=== PATIENT | female | born 1975 | race Caucasian/White ===

== ENCOUNTER 2024-06-12 16:30 | Inpatient (IN) | payer SELFPAY ==
[~2024-06-12] VITALS: Ht 144.8 cm; Wt 57.2 kg
[2024-06-12 18:11] LABS: CLARITY URINE CLOUDY (CLEAR); COLOR URINE DARK YELLOW (YELLOW); GLUCOSE URINE NEGATIVE (NEGATIVE); KETONES URINE 3+ (NEGATIVE); LEUKOCYTE ESTERASE URINE NEGATIVE (NEGATIVE); NITRITE URINE NEGATIVE (NEGATIVE); OCCULT BLOOD URINE TRACE (NEGATIVE); PH URINE 5.5 (4.5-8.0); PROTEIN URINE 1+ (NEGATIVE); SPECIFIC GRAVITY URINE 1.035 (1.005-1.030)
[2024-06-12 18:55] LABS: BACTERIA URINE TRACE; RBC URINE 0-2 /hpf (0-2); SQUAMOUS EPITHELIAL CELL URINE FEW /lpf (RARE/1+); WBC URINE 0-2 /hpf (0-2)
[2024-06-12 20:16] LABS: HCG SCREEN NEGATIVE
[2024-06-12 20:24] LABS: CHLORIDE 102 mEq/L (98-107); POTASSIUM 3.7 mEq/L (3.5-5.1); SODIUM 136 mEq/L (136-145)
[2024-06-12 20:25] LABS: CALCIUM 9.5 mg/dL (8.7-10.4); CARBON DIOXIDE 23 mEq/L (21-32)
[2024-06-12 20:30] LABS: CREATININE 0.6 mg/dL (0.6-1.0); GLUCOSE 96 mg/dL (70-105); UREA NITROGEN BLOOD 13 mg/dL (9-23)
[2024-06-12 20:32] LABS: ALANINE AMINOTRANSFERASE 319 IU/L (10-49); ALBUMIN 4.4 g/dL (3.2-4.8); ASPARTATE AMINOTRANSFERASE 301 IU/L (<34); BILIRUBIN DIRECT 2.1 mg/dL (<=3.0); BILIRUBIN TOTAL 3.3 mg/dL (0.1-1.0); HEMATOCRIT. 22.9 % (36.0-48.0); MEAN CORPUSCULAR HEMOGLOBIN 17.7 pg (28.0-32.0); MEAN CORPUSCULAR HGB CONC 29.1 g/dL (31.0-37.0); MEAN CORPUSCULAR VOLUME 60.8 fL (81.0-99.0); MEAN PLATELET VOLUME 8.8 fl (7.4-10.4); PLATELET 510 x1000/uL (130-400); PROTEIN TOTAL 7.8 g/dL (6.0-8.3); RED BLOOD CELL COUNT 3.77 mill/uL (4.2-5.4); RED CELL DISTRIBUTION WIDTH 20.1 % (11.6-14.6); WHITE BLOOD COUNT 8.4 x1000/uL (4.5-11.0)
[2024-06-12 20:38] LABS: DIFFERENTIAL COMMENT 1; HEMOGLOBIN. 6.7 g/dL (12.0-16.0)
[2024-06-12 21:09] LABS: HYPOCHROMASIA 3+; MICROCYTOSIS 3+; PLATELET ESTIMATE INCREASED
[2024-06-13] MEDS ORDERED: MAGNESIUM/ALUMINUM HYDROXIDE/SIMETHICONE 30ML UDC PO PRN
[2024-06-13] MEDS ORDERED: ONDANSETRON HCL 4MG/2ML INJ IV PRN
[2024-06-13] MEDS ORDERED: GUAIFENESIN 200MG/10ML SUGAR FREE UDC PO PRN
[2024-06-13] MEDS ORDERED: DEXTROSE 50% WATER 50ML SYRINGE IV PRN
[2024-06-13] MEDS ORDERED: HYDRALAZINE 20MG/ML VIAL IV PRN
[2024-06-13] MEDS ORDERED: IPRATROPIUM/ALBUTEROL 0.5-3(2.5)MG/3ML NEB HHN PRN
[2024-06-13] MEDS ORDERED: ACETAMINOPHEN 325MG TABLET PO PRN ×2
[2024-06-13] MEDS: DEXT 5%/0.45% NACL 1000ML 1,000 ML IV SCH (00:13)
[2024-06-13 02:39] LABS: INR 0.9; PROTHROMBIN TIME 10.1 sec (9.6-11.0)
[2024-06-13 02:51] LABS: IRON 18 ug/dL (50-170)
[2024-06-13 02:54] LABS: LACTATE DEHYDROGENASE 301 IU/L (120-246); PHOSPHORUS 3.3 mg/dL (2.5-4.9)
[2024-06-13 02:55] LABS: TOTAL IRON BINDING CAPACITY 425 ug/dl (250-425)
[2024-06-13] MEDS: PIPERACILLIN/TAZO 3.375G/50ML 50 ML IV SCH (04:40)
[2024-06-13] MEDS ORDERED: ENOXAPARIN 40MG/0.4ML SYR SUBCUT SCH (09:00)
[2024-06-13] MEDS: BLOOD SUGAR DIAGNOSTIC STRIP TEST SCH (09:00)
[2024-06-13 09:40] LABS: VITAMIN B12 SERUM 1167 pg/mL (211-911)
[2024-06-13 09:41] LABS: FERRITIN 6 ng/mL (10-291)
[2024-06-13 09:50] LABS: HEPATITIS B SURFACE ANTIGEN NEGATIVE (Negative)
[2024-06-13 10:11] LABS: HEPATITIS A AB IGM NEGATIVE (Negative); HEPATITIS B CORE AB IGM NEGATIVE (Negative)
[2024-06-13 10:12] LABS: HEPATITIS C AB NON REACTIVE (Neg) (Negative)
[2024-06-13 12:00] VITALS: BP 109/62; PULSE 69; RESP 17; TEMP 37.4; O2SAT 100
[2024-06-13] MEDS: INSULIN LISPRO 100 UNITS/ML SUBCUT SCH (12:16)
[2024-06-13 12:36] VITALS: BP 109/62; PULSE 69; RESP 17; TEMP 37.4
[2024-06-13] MEDS ORDERED: NON FORMULARY MED XX SCH (13:00)
[2024-06-13] MEDS: IRON SUCROSE COMPLEX 100 MG/5 ML ML IV SCH (14:30)
[2024-06-13 14:41] LABS: *AMPHETAMINES SCREEN URINE NEGATIVE (NEGATIVE); *BARBITURATES SCREEN URINE NEGATIVE (NEGATIVE); *BENZODIAZEPINES SCREEN URINE NEGATIVE (NEGATIVE); *COCAINE SCREEN URINE NEGATIVE (NEGATIVE); METHADONE URINE SCREEN NEGATIVE (NEGATIVE); OPIATES URINE SCREEN NEGATIVE (NEGATIVE); PHENCYCLIDINE URINE SCREEN NEGATIVE (NEGATIVE)
[2024-06-13 14:42] LABS: CANNABINOID URINE SCREEN NEGATIVE (NEGATIVE); ECSTASY MDMA SCREEN URINE NEGATIVE (NEGATIVE)
[2024-06-13 16:00] VITALS: BP 111/59; PULSE 77; RESP 18; TEMP 36.9; O2SAT 100
[2024-06-13 16:38] LABS: CHLORIDE 105 mEq/L (98-107); POTASSIUM 3.2 mEq/L (3.5-5.1); SODIUM 137 mEq/L (136-145)
[2024-06-13 16:39] LABS: CALCIUM 9.1 mg/dL (8.7-10.4); CARBON DIOXIDE 25 mEq/L (21-32)
[2024-06-13 16:44] LABS: CREATINE KINASE 82 IU/L (34-145); CREATINE KINASE MB FRACTION 0.8 ng/mL (0.5-3.6); CREATININE 0.7 mg/dL (0.6-1.0); GLUCOSE 88 mg/dL (70-105); TRIGLYCERIDE 150 mg/dL (0-150); TROPONIN I HIGH SENSITIVITY 8 ng/L (3.0-34)
[2024-06-13 16:45] LABS: LDL CHOLESTEROL 107 mg/dL (5-100); UREA NITROGEN BLOOD 9 mg/dL (9-23)
[2024-06-13 16:46] LABS: CHOLESTEROL 186 mg/dL (<200); HDL CHOLESTEROL 39 mg/dL (>65)
[2024-06-13 16:47] LABS: T4 FREE 1.49 ng/dL (0.89-1.76); THYROID STIMULATING HORMONE 1.91 uIU/mL (0.55-4.78)
[2024-06-13 16:48] LABS: BASOPHILS % 1.3 % (0.0-2.0); EOSINOPHILS % 4.2 % (0.0-5.0); HEMOGLOBIN. 8.1 g/dL (12.0-16.0); LYMPHOCYTES % 42.3 % (20.0-50.0); MEAN CORPUSCULAR HGB CONC 29.1 g/dL (31.0-37.0); MEAN CORPUSCULAR VOLUME 65.5 fL (81.0-99.0); MEAN PLATELET VOLUME 8.9 fl (7.4-10.4); MONOCYTES % 9.9 % (2.0-8.0); NEUTROPHILS % 42.3 % (40.0-76.0); PLATELET 445 x1000/uL (130-400); RED BLOOD CELL COUNT 4.28 mill/uL (4.2-5.4); RED CELL DISTRIBUTION WIDTH 23.1 % (11.6-14.6); WHITE BLOOD COUNT 5.4 x1000/uL (4.5-11.0)
[2024-06-13 17:11] LABS: ADD RBC MORPHOLOGY YES; DIFFERENTIAL COMMENT 1
[2024-06-13 20:00] VITALS: BP 112/71; PULSE 79; RESP 16; TEMP 36.5; O2SAT 99
[2024-06-13] MEDS: POTASSIUM CHLORIDE 20MEQ/PACKET PO NR (20:26)
[2024-06-13] MEDS: HYDROCODONE/ACETAMINOPHEN 5/325MG TABLET PO PRN (20:27)
[2024-06-13] MEDS: DOCUSATE SODIUM 100MG CAPSULE PO PRN (22:44)
[2024-06-14] VITALS: BP 98/52; PULSE 72; RESP 15; TEMP 36.8; O2SAT 98
[2024-06-14 00:01] LABS: ANISOCYTOSIS 2+; HYPOCHROMASIA 2+; MICROCYTOSIS 3+; PLATELET ESTIMATE INCREASED
[2024-06-14 00:18] LABS: CREATINE KINASE 60 IU/L (34-145)
[2024-06-14 00:21] LABS: CREATINE KINASE MB FRACTION < 0.5 ng/mL (0.5-3.6); TROPONIN I HIGH SENSITIVITY 8 ng/L (3.0-34)
[2024-06-14 04:00] VITALS: BP 103/58; PULSE 60; RESP 16; TEMP 36.4; O2SAT 100
[2024-06-14 06:49] LABS: CHLORIDE 105 mEq/L (98-107); POTASSIUM 3.7 mEq/L (3.5-5.1); SODIUM 139 mEq/L (136-145)
[2024-06-14 06:54] LABS: CALCIUM 8.9 mg/dL (8.7-10.4); CARBON DIOXIDE 25 mEq/L (21-32)
[2024-06-14 06:59] LABS: CREATININE 0.7 mg/dL (0.6-1.0); GLUCOSE 112 mg/dL (70-105); UREA NITROGEN BLOOD 7 mg/dL (9-23)
[2024-06-14 07:00] LABS: ALBUMIN 3.6 g/dL (3.2-4.8)
[2024-06-14 07:01] LABS: ALANINE AMINOTRANSFERASE 401 IU/L (10-49); ASPARTATE AMINOTRANSFERASE 261 IU/L (<34); BILIRUBIN DIRECT 0.9 mg/dL (<=3.0); BILIRUBIN TOTAL 1.8 mg/dL (0.1-1.0); PROTEIN TOTAL 6.4 g/dL (6.0-8.3)
[2024-06-14 07:18] LABS: BASOPHILS % 0.9 % (0.0-2.0); EOSINOPHILS % 4.2 % (0.0-5.0); HEMATOCRIT. 24.3 % (36.0-48.0); HEMOGLOBIN. 7.5 g/dL (12.0-16.0); LYMPHOCYTES % 24.2 % (20.0-50.0); MEAN CORPUSCULAR HEMOGLOBIN 19.8 pg (28.0-32.0); MEAN CORPUSCULAR HGB CONC 30.8 g/dL (31.0-37.0); MEAN CORPUSCULAR VOLUME 64.1 fL (81.0-99.0); MEAN PLATELET VOLUME 8.5 fl (7.4-10.4); MONOCYTES % 5.3 % (2.0-8.0); NEUTROPHILS % 65.4 % (40.0-76.0); PLATELET 385 x1000/uL (130-400); RED BLOOD CELL COUNT 3.79 mill/uL (4.2-5.4); RED CELL DISTRIBUTION WIDTH 22.9 % (11.6-14.6); WHITE BLOOD COUNT 8.3 x1000/uL (4.5-11.0)
[2024-06-14 07:59] LABS: DIFFERENTIAL COMMENT 1
[2024-06-14 08:00] VITALS: BP 100/58; PULSE 65; RESP 18; TEMP 36.5; O2SAT 98
[2024-06-14] MEDS: PANTOPRAZOLE SODIUM 40 MG/VIAL IV SCH (09:18)
[2024-06-14 12:00] VITALS: BP 97/56; PULSE 60; RESP 18; TEMP 36.5; O2SAT 98
[2024-06-14] MEDS ORDERED: ACET-2708 MT ×2 (14:03→15:57)
[2024-06-14] MEDS ORDERED: AMOX1TAB16 MT ×2 (14:03→15:57)
[2024-06-14] MEDS ORDERED: FERR325T6 MT ×2 (14:47→15:57)
[2024-06-14 15:44] VITALS: BP 102/55; PULSE 66; TEMP 97.7; O2SAT 98
[2024-06-16 08:09] LABS: CANCER ANTIGEN 125 7.5 U/mL (0.0-38.1)
== END 2024-06-14 16:15 | disposition home or self-care (01) | DRG 663 ==
LOC: ER 16:30 → EDBEDREQTM 22:43 → EDBEDREQ 22:43 → EDBEDREQSVC 22:43 → 8WST 06-13 00:44
PROVIDERS: ADMIT Hospitalist; ATTEND Hospitalist
PROC: 30233N1 Transfusion of Nonautologous Red Blood Cells into Peripheral Vein, Percutaneous Approach (ICD-10-PCS; principal; 2024-06-13)
DX: D50.9 Iron deficiency anemia, unspecified (principal); K80.70 Calculus of gallbladder and bile duct without cholecystitis without obstruction; R74.01 Elevation of levels of liver transaminase levels; N92.0 Excessive and frequent menstruation with regular cycle; E87.6 Hypokalemia; E78.5 Hyperlipidemia, unspecified; K82.8 Other specified diseases of gallbladder; D75.839 Thrombocytosis, unspecified; I10 Essential (primary) hypertension; Z28.310 Unvaccinated for COVID-19; Z87.891 Personal history of nicotine dependence; Z98.891 History of uterine scar from previous surgery
CPT/HCPCS: 36415; 36430; 71045; 74176; 74181; 76705; 76856; 80048; 80061; 80076; 80305; 80307; 81003; 82040; 82248; 82378; 82550; 82553; 82607; 82728; 82962; 83036; 83540; 83550; 83605; 83615; 83735; 84100; 84145; 84439; 84443; 84484; 84703; 85025; 85044; 86301; 86304; 86705; 86709; 86850; 86900; 86920; 87340; 99291; A4606; J2470; J2543; P9016